=== PATIENT | male | born 1960 | race Caucasian/White ===

== ENCOUNTER 2017-10-05 23:35 | Emergency (ER) | payer OTHER ==
[~2017-10-05] VITALS: Ht 177.8 cm; Wt 86.2 kg
--- NOTE | 2017-10-06 | NUR ---
TO BED 11 A 57 YO MALE PATIENT BIBRA FOR ETOH. PATIENT IS AWAKE, ALERT, RESPONSIVE. LAUGHING, REFUSED TO ANSWER TO SOME QUESTIONS. VSS. NAD NOTED. NONDIAPHORETIC. SAFETY AND COMFORT MEASURES RENDERED.
[2017-10-06] MEDS ORDERED: HALOPERIDOL LACTATE INJ 5 MG/ML VIAL ONE (01:48)
[2017-10-06] MEDS ORDERED: HALOPERIDOL LACTATE INJ 5 MG/ML VIAL IM ONE (02:00)
[2017-10-06 02:06] LABS: BASOPHILS # (AUTO) 0.1 /CMM (0.0-0.2); EOSINOPHILS # (AUTO) 0.1 /CMM (0.0-0.7); EOSINOPHILS % (AUTO) 0.9 % (0.0-6.0); HEMATOCRIT 43 % (39-51); HEMOGLOBIN 14.8 g/dL (13.5-17.5); LYMPHOCYTES # (AUTO) 1.8 /CMM (0.8-4.8); LYMPHOCYTES % (AUTO) 15.5 % (20.0-44.0); MEAN CORPUSCULAR HEMOGLOBIN 30 PG (26.0-33.0); MEAN CORPUSCULAR HGB CONC 34 g/dl (31.0-36.0); MEAN CORPUSCULAR VOLUME 89 fL (80-96); MONOCYTES # (AUTO) 0.7 /CMM (0.1-1.30); MONOCYTES % (AUTO) 6.1 % (2.0-12.0); NEUTROPHILS % (AUTO) 76.5 % (43.0-81.0); PLATELET COUNT (AUTO) 221 /CMM (150-450); RDW COEFFICIENT OF VARIATION 13.3 (11.5-15.0); WHITE BLOOD COUNT (AUTO) 11.7 K/uL (4.3-11.0)
[2017-10-06 02:18] LABS: CALCIUM, SERUM 8.8 mg/dL (8.5-10.1); CREATININE 1.3 mg/dL (0.6-1.3); POTASSIUM 3.3 mmol/L (3.5-5.1)
[2017-10-06 02:24] LABS: BILIRUBIN,DIRECT 0.1 mg/dL (0.0-0.2); BILIRUBIN,TOTAL 0.5 mg/dL (0.2-1.0); TOTAL PROTEIN, SERUM 7.9 g/dL (6.4-8.2)
[2017-10-06 02:25] LABS: SALICYLATE 0.7 mg/dL (2.8-20.0)
[2017-10-06 02:31] LABS: THYROID STIMULATING HORMONE 2.127 uIU/mL (0.358-3.74)
--- NOTE | 2017-10-06 03:05 | NUR ---
PATIENT IS SLEEPING COMFORTABLY AT THIS TIME. VSS.
--- NOTE | 2017-10-06 05:57 | NUR ---
PATIENT LEFT WITHOUT RECEIVED PAPER EXIT CARE. NAD NOTED. VSS.
[2017-10-06 05:59] VITALS: BP 142/74
== END 2017-10-06 06:00 | disposition home or self-care (01) ==
LOC: ER 23:39
DX: F10.129 Alcohol abuse with intoxication, unspecified (principal)
CPT/HCPCS: 36415; 70450; 80048; 80076; 80329; 84443; 85025; 96372; 99285; A4606; A6402; G0480 ×2; J1630; Z7610